=== PATIENT | male | born 1985 | race Caucasian/White ===

== ENCOUNTER → 2022-11-07 | Outpatient (CLI) | payer BC, OTHER ==
--- NOTE | 2022-11-07 11:41 | Diagnostic Imaging Report ---
INDICATION: Right shoulder pain, history of dislocation Right shoulder 3 views The right shoulder shows no fracture, dislocation or other acute abnormalities. IMPRESSION: Negative right shoulder. Dictated by: Dictated on workstation # [id number]
== END ==
LOC: RAD 10:39
PROVIDERS: ATTEND Family Medicine
DX: M25.511 Pain in right shoulder (principal)
CPT/HCPCS: 73030

== ENCOUNTER → 2023-02-03 | Outpatient (CLI) | payer BC | LOC: RAD 15:00 | PROVIDERS: ATTEND Family Medicine | DX: R51.9 Headache, unspecified (principal) ==